=== PATIENT | female | born 1975 | race Caucasian/White ===

== ENCOUNTER → 2019-08-13 11:28 | Outpatient (CLI) | payer OTHER, SELFPAY ==
[2019-08-13 12:01] LABS: Influenza A - CEPHEID Flu A NEGATIVE (NEGATIVE); Influenza B - CEPHEID Flu B POSITIVE (NEGATIVE)
== END ==
PROVIDERS: Family Provider Internal Medicine; Visit Provider Nurse Practitioner
DX: J11.1 Influenza due to unidentified influenza virus with other respiratory manifestations (principal)
CPT/HCPCS: 87502

== ENCOUNTER → 2020-02-07 17:01 | Outpatient (CLI) | payer OTHER, SELFPAY ==
--- NOTE | 2020-02-07 17:04 | DI.RAD.S_ITS ---
PROCEDURE: XR SHOULDER RT MIN 2V INDICATIONS: R shoulder pain, r/o calcified tendinitis TECHNIQUE: 3 views of the shoulder were acquired. COMPARISON: None. FINDINGS: Bones: No fractures or dislocations. No suspicious bony lesions. Visualized ribs appear intact. Soft tissues: No suspicious soft tissue calcifications. IMPRESSION: No acute radiographic findings. If there is continued pain, followup exam or additional imaging such as MRI or CT could be performed for further assessment. Dictated by: Isi Parham M.D. on 02/07/2020 at 17:22 Approved by: Isi Parham M.D. on 02/07/2020 at 17:22
== END ==
PROVIDERS: Family Provider Internal Medicine; Referring Provider Nurse Practitioner; Visit Provider Nurse Practitioner
DX: M25.511 Pain in right shoulder (principal)
CPT/HCPCS: 73030

== ENCOUNTER → 2020-09-06 15:39 | Outpatient (CLI) | payer OTHER, SELFPAY ==
[2020-09-06] MEDS: COVID-19 VACC, Ad26(JANSSEN)/PF 0.5 ML IM (15:51)
== END ==
PROVIDERS: Family Provider Internal Medicine; Visit Provider Internal Medicine
DX: Z23 Encounter for immunization (principal)
CPT/HCPCS: 0031A; 91303

== ENCOUNTER → 2021-06-03 13:47 | Outpatient (CLI) | payer OTHER, SELFPAY ==
--- NOTE | 2021-06-03 | DI.ECHO.S_ITS ---
[facility] +---------+ : : [address] : [place] : : : : [id number] : : : : Phone: [phone]+ Echocardiogram Report + + :Name: RAYMUNDO BOONE Study Date: 06/03/2021 Height: 63 in : :[facility] ReadingLocation: Weight: 160 lb : : Gender: Female BSA: 1.8 m2 : :: 1975 Age: 46 yrs BP: 127/77 mmHg: :Reason For Study: Chest pain : : Performed By: Kranthi Montague : :Referring: SHAYY WESTFALL : + + Interpretation Summary Normal sinus rhythm. Normal LV size, wall thickness, wall motion and LV systolic function. EF is 60-65%. Normal chamber sizes. No valvular abnormalities. No prior study available for comparison. Procedure: A two-dimensional transthoracic echocardiogram with color flow and Doppler was performed. The study quality was technically adequate. There is no prior echocardiogram noted for this patient. Patient could not hold breath. The patient was in normal sinus rhythm during the exam. Left Ventricle: The left ventricle is normal in size and wall thickness. The ejection fraction is estimated to be 60-65%. Right Ventricle: The right ventricle is normal in size and function. Atria: Both atria are normal in size. There is no Doppler evidence for an interatrial shunt. Mitral Valve: The mitral valve leaflets appear borderline thickened, but open well. There is a flat closure plane of the the mitral valve leaflets. There is trace mitral regurgitation. Aortic Valve: The aortic valve is trileaflet. The aortic valve opens well. There is trace aortic regurgitation. Tricuspid Valve: The tricuspid valve is normal. There is a trace or physiologic amount of tricuspid regurgitation. Pulmonary artery pressures cannot be estimated because of the lack of a measurable TR jet velocity but the IVC suggests a CVP of around 3 mmHg. Pulmonic Valve: The pulmonic valve is normal in structure and function. Great Vessels: The aortic root is normal size. The ascending aorta is normal in size. The aortic arch is normal in size. The IVC is of normal diameter and collapses greater than 50% with a sniff. This suggests a low right atrial pressure of 3 mm Hg. Pericardium/ Pleura There is no pericardial effusion. There is an anterior echo-free space consistent with a fat pad. There is no pleural effusion. MMode/2D Measurements & Calculations LVIDd: 4.4 cm LVOT diam: 2.2 cm LVIDs: 2.9 cm Ao root diam: 3.2 cm FS: 33.7 % asc Aorta Diam: 2.8 cm IVSd: 0.68 cm Ao Arch Diam (Prox Trans): 2.7 cm LVPWd: 0.82 cm LV oshea. diameter/BSA (cm/m^2): 2.5 LV sys. diameter/BSA (cm/m^2): 1.7 LA A2 area: 17.6 cm2 RA long axis: 5.1 cm LA A4 area: 14.6 cm2 RA area: 11.5 cm2 LA length (vol): 5.3 cm RA vol: 21.9 ml LA vol: 40.9 ml RA : 12.5 ml/m2 LA vol index: 23.2 ml/m2 TAPSE: 1.8 cm Doppler Measurements & Calculations Ao V2 max: 113.7 cm/sec LVOT Max Robert: 100.0 cm/sec Ao V2 mean: 87.7 cm/sec LV V1 max P.0 mmHg Ao max P.2 mmHg LV V1 VTI: 20.3 cm Ao mean P.3 mmHg OMAR(I,D): 3.1 cm2 Ao V2 VTI: 24.5 cm OMAR(V,D): 3.3 cm2 sev ratio: 0.83 OMAR indexed to BSA (cm^2/m^2): 1.8 MV E max robert: 99.2 cm/sec PA V2 max: 109.2 cm/sec MV A max robert: 61.2 cm/sec PA V2 mean: 78.8 cm/sec MV E/A: 1.6 PA mean P.7 mmHg Med Peak E' Robert: 11.3 cm/sec PA pr(Accel): 12.2 mmHg E/E' med: 8.7 Lat Peak E' Robert: 14.3 cm/sec E/E' lat: 6.9 E/e' average: 7.8 MV dec time: 0.22 sec SV(LVOT): 77.2 ml Electronically signed by: Lisa Knight M.D. on Reading Physician:06/04/2021 09:47 AM
== END ==
PROVIDERS: Family Provider Internal Medicine; PCP Physician Assistant; Referring Provider Physician Assistant; Visit Provider Physician Assistant
DX: R07.9 Chest pain, unspecified (principal)
CPT/HCPCS: 93306

== ENCOUNTER 2022-01-04 16:23 | Emergency (ER) | payer OTHER, SELFPAY ==
[2022-01-04 16:29] VITALS: BP 130/74; PULSE 74; RESP 18; TEMP 36.4; O2SAT 96
--- NOTE | 2022-01-04 16:32 | DI.RAD.S_ITS ---
PROCEDURE: XR FOOT LT MIN 3V INDICATIONS: pain/swelling twisting injury TECHNIQUE: 3 views of the foot were acquired. COMPARISON: None. FINDINGS: Bones: No fractures or dislocations. No suspicious bony lesions. Soft tissues: No tibiotalar joint effusion. Achilles tendon appears normal. IMPRESSION: Normal left foot Dictated by: Benny Valentine M.D. on 01/04/2022 at 15:46 Approved by: Benny Valentine M.D. on 01/04/2022 at 15:47
--- NOTE | 2022-01-04 18:28 | ED.LOWEXIN ---
HPI - Extremity Injury (Lower) General Chief Complaint: Extremity Injury, Lower Stated Complaint: injured left foot Time Seen by Provider: 01/04/22 18:18 Source: patient Mode of arrival: Wheelchair Limitations: no limitations History of Present Illness HPI Narrative: 46-year-old female who is here for evaluation of a left foot injury. She reports that [place] going [place] 1 of the slide she got her left foot caught. She is had a very difficult time walking on it since then. She describes pain on the top of her left foot and the outside of the foot/ankle. Related Data Previous Rx's Medication Instructions Recorded norgestimate 0.25 mg-ethinyl See Rx Instructions .Route 06/20/20 estradiol 35 mcg tablet .COMPLEX #84 tabs (Eaton-Linyah) Allergies Allergy/AdvReac Type Severity Reaction Status Date / Time No Known Drug Allergies Allergy Verified 02/07/20 16:49 Review of Systems Musculoskeletal Musculoskeletal: Reports system reviewed and no additional complaints, except as documented Integumentary/Breasts Skin/Breast: Reports system reviewed and no additional complaints, except as documented Neurologic Neurologic: Reports system reviewed and no additional complaints, except as documented Patient History Medical History History of anemia (05/08/15) Surgical History Status post hernia repair Family History Father Age: 72 Mouth cancer Grandfather Heart disease Mother Age: 70 Mental health problem Hypertension High cholesterol Grandfather Heart disease Hypertension Grandmother Colon cancer Sister Age: 52 Cancer Sister Age: 49 Cancer Social History Smoking Status: Former smoker alcohol intake: current Smoking Status: Former smoker Exam Initial Vital Signs Initial Vital Signs: Vital Signs Temperature 97.6 F 01/04/22 16:29 Pulse Rate 74 01/04/22 16:29 Respiratory Rate 18 01/04/22 16:29 Blood Pressure 130/74 01/04/22 16:29 Pulse Oximetry 96 01/04/22 16:29 Oxygen Delivery Method 01/04/22 16:29 Cardio Pulses: dorsalis pedis present on the left Skin Other: Small area of bruising on the dorsum/lateral aspect of the left foot. Neuro Sensory Exam: no sensory deficits noted Extrem Other: No proximal fibula tenderness. No tenderness along the Achilles tendon. Slight tenderness along the lateral aspect of the foot and over the lateral/dorsum aspect of the foot. No tenderness along the Lisfranc joint. Procedures Orthopedic Splinting/Casting Injury #1: Side: left Lower Extremity Injury Location: foot Lower Extremity Immobilizer: Isma wrap Post splinting neuro exam: no change Post splinting vascular exam: no change Placed by: Nursing Course Orders Ordered: ED Orders 01/04/22 16:32 XR foot LT min 3V Stat Vital Signs Vital signs: Vital Signs - 8 hr 01/04/22 16:29 Temperature 97.6 F Pulse Rate 74 Respiratory Rate 18 Blood Pressure 130/74 Pulse Oximetry 96 Oxygen Delivery Method Room Air MDM - Extremity Injury (Lower) Imaging Data Extremity x-ray #1: Radiologist's Impression: [address] [id number] XRay Report Signed Patient: Soco Gonzáles MR#: [id number] : 1975 Acct:[id number] Age/Sex: 46 / F Date of Service: 01/04/22 Loc: ED Accession Number: [id number] ?? Procedure: XR foot LT min 3V Ordering Provider: Carmen Gannon D.O. PROCEDURE:? XR FOOT LT MIN 3V ? INDICATIONS:? pain/swelling twisting injury ? TECHNIQUE:? 3 views of the foot were acquired.? ? COMPARISON:? None. ? FINDINGS:? ? Bones:? No fractures or dislocations.? No suspicious bony lesions.? ? Soft tissues:? No tibiotalar joint effusion.? Achilles tendon appears normal.? ? ? IMPRESSION:? Normal left foot ? ? Dictated by: Benny Valentine M.D. on 01/04/2022 at 15:46 ? ? Approved by: Benny Valentine M.D. on 01/04/2022 at 15:47?? [facility] Narrative Medical decision making narrative: X-ray shows no fractures. She is neurovascularly intact. Small area of contusion on the dorsum of the foot. Not tender over the Lisfranc joint. I did discuss the negative x-rays. We did discuss potential soft tissue injury to include ligaments and tendons. She was informed that she could walk on her foot as tolerated however right now she is having quite a bit of difficulty putting pressure on the foot so will send home with crutches. She was given an Isma bandage for comfort. She was given return precautions and the potential need for follow-up if her symptoms do not improve. She expressed understanding and agreement. Discharge Plan Departure Patient Disposition: Home Clinical Impression: Injury of foot, left, Contusion of foot, left Instructions: How to Use Crutches, How To Perform RICE (Rest, Ice, Compress, Elevate), How to Apply an Elastic Wrap on Ankle Activity Restrictions/Additional Instructions: The x-ray today shows no signs of a fracture which means that as tolerated you can put pressure on your left foot. I do recommend that you keep it elevated and use ice. Use the crutches as needed. This may take several days for your symptoms to improve. After this time if you continue to have discomfort you do need to be re-evaluated. You potentially will need further radiologic studies such as x-rays or MRIs or potentially referral to see Physical therapy or Orthopedics. This can be performed by your primary provider. You can take Tylenol/ibuprofen for any discomfort. Prescriptions: No Action norgestimate-ethinyl estradiol [Eaton-Linyah] 0.25-35 mg-mcg tablet See Rx Instructions .ROUTE .COMPLEX Qty: 84 1RF Dose Instruction: take 1 tablet by mouth once daily Rx Instructions: take 1 tablet by mouth once daily. Please follow up with PCP to manage med. Referrals: Patricia Lewis PA-C [Primary Care Provider] - Stand Alone Forms: Work Release Note Visit Report Forms: Patient Portal/API
== END 2022-01-04 18:57 | disposition home or self-care (01) ==
PROVIDERS: Emergency Provider Emergency Medicine; Family Provider Internal Medicine; PCP Physician Assistant
DX: S90.32XA Contusion of left foot, initial encounter (principal); X58.XXXA Exposure to other specified factors, initial encounter
CPT/HCPCS: 73630; 99282; 99283

== ENCOUNTER → 2022-01-20 12:56 | Outpatient (CLI) | payer OTHER, SELFPAY ==
--- NOTE | 2022-01-20 | DI.RAD.S_ITS ---
PROCEDURE: XR FOOT LT MIN 3V INDICATIONS: FOOT PAIN TECHNIQUE: 3 views of the foot were acquired. COMPARISON: [facility], CR, XR FOOT LT MIN 3V, 01/04/2022, 16:22. FINDINGS: Bones: No acute fractures or dislocations. No suspicious bony lesions. Small plantar calcaneal enthesophyte. Soft tissues: No suspicious soft tissue calcification. IMPRESSION: No acute osseous abnormality. If the symptoms persist, consider cross sectional imaging such as MRI or CT for further assessment. Dictated by: Vaibhav Rodriguez M.D. on 01/20/2022 at 16:53 Approved by: Vaibhav Rodriguez M.D. on 01/20/2022 at 16:54
--- NOTE | 2022-01-20 | DI.RAD.S_ITS ---
PROCEDURE: XR ANKLE LT MIN 3V INDICATIONS: ANKLE AND FOOT PAIN LEFT TECHNIQUE: 3 views of the ankle were acquired. COMPARISON: [facility], CR, XR FOOT LT MIN 3V, 01/04/2022, 16:22. [facility], CR, XR FOOT LT MIN 3V, 01/20/2022, 14:05. FINDINGS: Bones: No acute fractures or dislocations. Ankle mortise is normally aligned. No suspicious bony lesions. Soft tissues: Mild soft tissue edema over the medial malleolus. No suspicious soft tissue calcification. IMPRESSION: No acute osseous abnormality. If clinical suspicion and/or symptoms persist, additional imaging with repeat plain films, or advanced imaging (e.g. CT, MRI) may be helpful for further assessment. Dictated by: Vaibhav Rodriguez M.D. on 01/20/2022 at 16:52 Approved by: Vaibhav Rodriguez M.D. on 01/20/2022 at 16:53
== END ==
PROVIDERS: Family Provider Internal Medicine; PCP Physician Assistant; Referring Provider Physician Assistant; Visit Provider Physician Assistant
DX: S99.922D Unspecified injury of left foot, subsequent encounter (principal); R26.2 Difficulty in walking, not elsewhere classified; X58.XXXD Exposure to other specified factors, subsequent encounter
CPT/HCPCS: 73610; 73630

== ENCOUNTER → 2022-02-04 14:50 | Outpatient (CLI) | payer OTHER, SELFPAY ==
--- NOTE | 2022-02-04 14:52 | DI.MRI.S_ITS ---
PROCEDURE: MR ANKLE LT WO/W CON INDICATIONS: LEFT FOOT INJURY/DIFFICULTY AMBULATING TECHNIQUE: Noncontrast sagittal T1 spin echo and T2 fast spin echo with fat saturation, axial proton density fast spin echo and T2 fast spin echo with fat saturation, axial T1 spin echo with fat saturation, coronal T1 spin echo and T2 fast spin echo with fat saturation through the ankle/hindfoot. Post-contrast axial, coronal, and sagittal T1 spin echo with fat saturation through the ankle/hindfoot. COMPARISON: [facility], CR, XR ANKLE LT MIN 3V, 01/20/2022, 14:05. FINDINGS: Image quality: Excellent. Bones and joints: Osseous edema is seen within multiple bones of the midfoot including the 4th metatarsal base as well as the 2nd metatarsal base and the 2nd and 3rd cuneiforms. Minimal edema is seen along the plantar lateral aspect of the 1st tarsometatarsal joint. Areas of linear hypointensity are seen that are suspicious for more small nondisplaced fractures. Mild osseous edema is seen at the distal plantar aspect of the cuboid. The visualized components of the Lisfranc ligament remain intact continuity. Mild dorsal spurring is seen at the talonavicular joint. No osteochondral lesion is seen in the talar dome. No enhancing soft tissue mass. Medial structures: The deep and superficial layers of the deltoid ligament appear intact. The spring ligament components are intact. The posterior tibialis, flexor digitorum longus, and flexor hallucis longus tendons are intact. The posterior tibial neurovascular bundle appears normal within the tarsal tunnel, without extrinsic mass effect. Lateral structures: Thickening of the anterior talofibular ligament is consistent with a remote prior low-grade sprain. The calcaneofibular ligament and the posterior talofibular ligament are grossly intact. The anterior and posterior tibiofibular ligaments appear intact. Flattening of the peroneus brevis tendon is consistent with tendinosis. There is also mild fluid surrounding the peroneus brevis and longus tendons, consistent with tenosynovitis. The sinus tarsi demonstrates normal fatty signal. Anterior structures: The tibialis anterior, extensor hallucis longus, and extensor digitorum longus tendons appear intact. The dorsal talonavicular ligament appears intact. Posterior and plantar structures: Achilles tendon is intact. Medial and lateral bands of the plantar fascia are of normal thickness. No abductor digiti quinti muscle atrophy to suggest Goode neuropathy. IMPRESSION: 1. Small minimally displaced fractures at the plantar bases of the 2nd and 4th metatarsals. Additional mild osseous contusions are seen throughout the midfoot. No definite disruption of the Lisfranc ligament is seen. 2. Chronic low-grade sprain of the anterior talofibular ligament. 3. Mild tendinosis and tenosynovitis of the peroneus brevis and longus tendons. Dictated by: Vaibhav Rodriguez M.D. on 02/05/2022 at 8:47 Approved by: Vaibhav Rodriguez M.D. on 02/05/2022 at 9:14
--- NOTE | 2022-02-04 14:52 | DI.MRI.S_ITS ---
PROCEDURE: MR FOOT LT WO/W CON INDICATIONS: LEFT FOOT INJURY/DIFFICULTY AMBULATING TECHNIQUE: Noncontrast sagittal T1 spin echo and T2 fast spin echo with fat saturation, long-axis T1 spin echo and T2 fast spin echo with fat saturation; short-axis T1 spin echo, proton density fast spin echo, and T2 fast spin echo with fat saturation through the forefoot. Post-contrast short axis, long axis, and sagittal T1 spin echo with fat saturation through the forefoot. COMPARISON: [facility], CR, XR FOOT LT MIN 3V, 01/04/2022, 16:22. [facility], CR, XR FOOT LT MIN 3V, 01/20/2022, 14:05. FINDINGS: Image quality: Excellent. Bones and joints: Small minimally displaced intra-articular fractures are seen at the base of the 2nd metatarsal and at the base of the 4th metatarsal with mild surrounding osseous edema. Mild osseous edema is seen surrounding the plantar aspects of the 1st through 3rd cuneiform see, the cuboid, and the 1st metatarsal base that may represent contusions. Mild degenerative spurring is seen at the dorsal aspect of the talonavicular joint. The sesamoid bones demonstrate normal location in signal intensity. Mild degenerative changes of the 1st metatarsophalangeal joint. Soft tissues: No enhancing soft tissue mass. The visualized plantar foot muscles demonstrate normal signal and bulk. Visualized flexor and extensor tendons appear intact, without tenosynovitis. The principal Lisfranc ligament appears intact. No soft tissue ganglion cysts. Sagittal images demonstrate no evidence for plantar plate tears. IMPRESSION: Small minimally displaced fractures at the bases of the 2nd and 4th metatarsals with surrounding osseous edema. Additional small osseous contusions are seen throughout the midfoot. Lisfranc ligament is intact. Dictated by: Vaibhav Rodriguez M.D. on 02/05/2022 at 9:03 Approved by: Vaibhav Rodriguez M.D. on 02/05/2022 at 9:14
== END ==
PROVIDERS: Family Provider Internal Medicine; PCP Physician Assistant; Referring Provider Family Medicine; Visit Provider Family Medicine
DX: S92.325A Nondisplaced fracture of second metatarsal bone, left foot, initial encounter for closed fracture (principal); S92.345A Nondisplaced fracture of fourth metatarsal bone, left foot, initial encounter for closed fracture; R26.2 Difficulty in walking, not elsewhere classified; X58.XXXA Exposure to other specified factors, initial encounter
CPT/HCPCS: 73720; 73723; A9579

== ENCOUNTER → 2022-05-14 08:02 | Outpatient (CLI) | payer OTHER, SELFPAY ==
[2022-05-14 09:54] LABS: Alanine Aminotransferase 28 IU/L (<35); Albumin 3.9 g/dL (3.5-5.0); Albumin Globulin Ratio 1.4 (1.0-2.8); Alkaline Phosphatase 90 U/L (38-126); Aspartate Aminotransferase 24 IU/L (14-36); BUN Creatinine Ratio 13.4 (6-22); Bilirubin Total 0.3 mg/dL (0.2-1.3); Blood Urea Nitrogen 11 mg/dL (7-17); Calcium 8.4 mg/dL (8.4-10.2); Carbon Dioxide 23 mmol/L (22-32); Chloride 104 mmol/L (98-107); Cholesterol 147 mg/dL (140-199); Estimated Glomerular Filt Rate > 60 mL/min (>60); Globulin 2.8 g/dL (1.7-4.1); Glucose 103 mg/dL (70-100); HDL Cholesterol 56 mg/dL (40-60); HEMOLYSIS < 15 (0-50); LDL Cholesterol Calculated 72 mg/dL (<100); Potassium 4.4 mmol/L (3.4-5.1); Sodium 138 mmol/L (137-145); Total Protein 6.7 g/dL (6.3-8.2); Triglycerides 94 mg/dL (35-150)
[2022-05-14 10:10] LABS: Vitamin D 25 Hydroxy (D3) 31.4 ng/mL (30.0-100.0)
[2022-05-14 10:21] LABS: Thyroid Stimulating Hormone 1.42 uIU/mL (0.47-4.68)
== END ==
PROVIDERS: Family Provider Internal Medicine; PCP Family Medicine; Referring Provider Family Medicine; Visit Provider Family Medicine
DX: Z13.29 Encounter for screening for other suspected endocrine disorder (principal); Z13.220 Encounter for screening for lipoid disorders; Z13.0 Encounter for screening for diseases of the blood and blood-forming organs and certain disorders involving the immune mechanism; E55.9 Vitamin D deficiency, unspecified
CPT/HCPCS: 36415; 80053; 80061; 82306; 84443

== ENCOUNTER → 2022-06-10 07:56 | Outpatient (CLI) | payer OTHER, SELFPAY ==
[2022-06-10 09:32] LABS: Hemoglobin A1C% w Est Avg Glu 5.6 % (4.0-6.0)
== END ==
PROVIDERS: Family Provider Internal Medicine; PCP Family Medicine; Referring Provider Family Medicine; Visit Provider Family Medicine
DX: R73.01 Impaired fasting glucose (principal)
CPT/HCPCS: 36415; 83036

== ENCOUNTER → 2022-10-02 08:21 | Outpatient (CLI) | payer OTHER, SELFPAY ==
[2022-10-03 06:09] LABS: Labcorp Hemoglobin (Hb) A1c 5.6 % (4.8-5.6)
== END ==
PROVIDERS: Family Provider Internal Medicine; PCP Family Medicine; Referring Provider Family Medicine; Visit Provider Family Medicine
DX: R73.01 Impaired fasting glucose (principal)
CPT/HCPCS: 36415; 83036